=== PATIENT | female | born 1945 | race Caucasian/White ===

== ENCOUNTER 2022-01-18 21:51 | Inpatient (IN) ==
[2022-01-19] MEDS ORDERED: Haloperidol 5 mg/ml SDV IV/IM 5 MG/ML AMP IM ONE (15:52)
[2022-01-31] MEDS ORDERED: Al Hydrox/Mg Hydrox/Simet LIQ 30 ML UDC PO ONE (10:42)
[2022-02-03 00:19] LABS: High Sensitivity Troponin 1 Hr 80 pg/mL (<15)
[2022-02-04 07:33] VITALS: BP 100/62
[2022-02-04 09:13] LABS: ABS Eosinophils 0.1 10^3/ul (0-0.6); ABS Lymphocytes 0.8 10^3/ul (1.0-4.8); ABS Monocytes 0.5 10^3/ul (0-0.8); ABS Neutrophils 6.4 10^3/ul (1.5-7.7); Eosinophil % 1.5 %; Hematocrit 39 % (35-47); Hemoglobin 12.7 g/dL (12.0-16.0); Lymphocyte % 10.1 %; Mean Corpuscular HGB Conc 33 g/dL (31-36); Mean Corpuscular Hemoglobin 31 pg (27-31); Mean Corpuscular Volume 95 fL (80-97); Mean Platelet Volume 10.2 fL (7.4-10.4); Nucleated Red Blood Cells % 0.1; Platelet Count 247 10^3/uL (150-450); Red Blood Count 4.06 10^6 /uL (3.70-4.87); Red Cell Distribution Width 14 % (10-15); White Blood Count 7.9 10^3/uL (3.5-10.8)
[2022-02-04 09:40] LABS: Calcium 9.2 mg/dL (8.6-10.3); Potassium 4.6 mmol/L (3.5-5.0); eGFR CKD-EPI 84.1 (>60)
== END 2022-02-04 10:28 | disposition short-term general hospital (02) | DRG 884 ==
LOC: ED 21:51 → EDHOLD 22:17 → SUATTDRO 22:17 → EDHOLD 01-19 07:34 → MEDTELE 01-19 17:11 → MED 01-24 22:57
PROVIDERS: ADMIT Internal Medicine; ATTEND Internal Medicine

== ENCOUNTER 2022-02-04 10:41 | Observation (INO) ==
[2022-02-04 13:11] LABS: Magnesium 2.1 mg/dL (1.9-2.7)
[2022-02-04 13:19] LABS: TSH Ultra Thyroid Stim Horm 1.84 mcIU/mL (0.34-5.60)
[2022-02-04] MEDS ORDERED: Perflutren Lipid Microsphere 3 ML VIAL ONE (14:56)
[2022-02-07 14:37] LABS: ABS Eosinophils 0.2 10^3/ul (0-0.6); ABS Lymphocytes 0.9 10^3/ul (1.0-4.8); ABS Monocytes 0.6 10^3/ul (0-0.8); ABS Neutrophils 4.9 10^3/ul (1.5-7.7); Eosinophil % 2.7 %; Hematocrit 39 % (35-47); Hemoglobin 12.5 g/dL (12.0-16.0); Lymphocyte % 13.3 %; Mean Corpuscular HGB Conc 32 g/dL (31-36); Mean Corpuscular Hemoglobin 31 pg (27-31); Mean Corpuscular Volume 95 fL (80-97); Mean Platelet Volume 9.7 fL (7.4-10.4); Platelet Count 256 10^3/uL (150-450); Red Blood Count 4.05 10^6 /uL (3.70-4.87); Red Cell Distribution Width 14 % (10-15); White Blood Count 6.6 10^3/uL (3.5-10.8)
[2022-02-07 15:12] LABS: Calcium 9.2 mg/dL (8.6-10.3); Potassium 4.6 mmol/L (3.5-5.0); eGFR CKD-EPI 73.2 (>60)
[2022-02-09 07:31] VITALS: BP 118/74
== END 2022-02-08 16:00 | disposition short-term general hospital (02) ==
LOC: MED → SUATTDRO 02-06 17:49
PROVIDERS: ADMIT Internal Medicine; ATTEND Hospitalist

== ENCOUNTER 2022-02-09 07:41 | Inpatient (IN) ==
[2022-03-01 07:28] VITALS: BP 126/68
== END 2022-03-01 11:25 | DRG 884 ==
LOC: MED 07:41 → SUATTDRO 07:41
PROVIDERS: ADMIT Hospitalist; ATTEND Internal Medicine